=== PATIENT | female | born 1980 | race African-American/Black ===

== ENCOUNTER 2018-08-19 20:23 | Emergency (ER) | payer OTHER ==
[~2018-08-19] VITALS: Ht 157.5 cm; Wt 62.7 kg
[2018-08-20] MEDS ORDERED: NS 1,000 ML IV ONE
[2018-08-20 00:15] LABS: BASO % 0.4 % (0.0-1.0); EOS # 0.1 10^3/uL (0.0-0.50); EOS % 2.5 % (0.0-3.0); HEMATOCRIT 36.7 % (36.0-47.0); HEMOGLOBIN 12.7 g/dl (12.0-15.5); LYMPH # 2.7 10^3/uL (1.5-4.5); LYMPH % 50.5 % (24.0-44.0); MEAN CORPUSCULAR HEMOGLOBIN 31.1 pg (27.0-33.0); MEAN CORPUSCULAR HGB CONC 34.6 g/dl (32.0-36.5); MEAN CORPUSCULAR VOLUME 89.7 fl (80.0-96.0); MONO # 0.5 10^3/uL (0.0-0.8); MONO % 8.8 % (0.0-5.0); NEUTROPHILS % 37.4 % (36.0-66.0); PLATELET COUNT, AUTOMATED 200 10^3/uL (150-450); RED BLOOD COUNT 4.09 10^6/uL (4.00-5.40); WHITE BLOOD COUNT 5.3 10^3/uL (4.0-10.0)
[2018-08-20 00:38] LABS: HCG, SERUM QUALITATIVE NEGATIVE (NEGATIVE)
[2018-08-20 00:53] LABS: BLOOD UREA NITROGEN 10 MG/DL (7-18); CALCIUM LEVEL 8.4 MG/DL (8.5-10.1); CARBON DIOXIDE LEVEL 26 MEQ/L (21-32); CHLORIDE LEVEL 108 MEQ/L (98-107); CK-MB VALUE MASS < 1.0 NG/ML (<3.6); CPK CREATINE PHOSPHOKINASE 246 U/L (26-192); CREATININE FOR GFR 0.76 MG/DL (0.55-1.30); FREE T4 0.92 NG/DL (0.76-1.46); GLOMERULAR FILTRATION RATE > 60.0 (>60); GLUCOSE, FASTING 86 MG/DL (70-100); MB/CK RELATIVE INDEX 0.41 (< OR =4); POTASSIUM SERUM 4.6 MEQ/L (3.5-5.1); SODIUM LEVEL 141 MEQ/L (136-145); TROPONIN I < 0.02 NG/ML (< 0.10)
[2018-08-20 03:01] VITALS: BP 111/60
--- NOTE | 2018-08-20 04:30 | REP ---
Clinical: Near-syncopal episode . Comparison: None . Technique: PA and lateral. Findings: The mediastinum and cardiac silhouette are normal. The lung reyes are clear and without acute consolidation, effusion, or pneumothorax. The skeletal structures are intact and normal. Impression: 1. No acute cardiopulmonary process. Electronically Signed by Mahamed Pinto MD 08/20/2018 04:21 A
--- NOTE | 2018-08-20 09:25 | ECGEPIP ---
Stationary ECG Study [facility] - ED Test Date: 2018-08-19 Pat Name: SHARLA VÁSQUEZ Department: Room: - Gender: F [employer]: JOSE : 1980 Requested By: JOANA Alfaro PA-C Order Number: [id number] Reading MD: Memo Marks Measurements Intervals [place] Rate: 63 P: 62 [place]: 141 QRS: 56 QRSD: 88 T: 38 QT: 408 QTc: 419 Interpretive Statements SINUS RHYTHM WITH OCCASIONAL VENTRICULAR PREMATURE COMPLEXES Movement artifact Comparison tracing not on file Electronically Signed On 08-20-2018 9:24:42 EST by Memo Marks
== END 2018-08-20 02:59 | disposition home or self-care (01) ==
LOC: M ED 20:23
DX: I95.1 Orthostatic hypotension (principal); R00.2 Palpitations; R55 Syncope and collapse; E23.6 Other disorders of pituitary gland